=== PATIENT | male | born 1945 | race Caucasian/White ===

== ENCOUNTER 2018-03-15 18:11 | Emergency (ER) | payer OTHER, MEDICARE ==
--- NOTE | 2018-03-15 18:17 | ED SYNCOPE COMPLAINT ---
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 REPORED DIZZINESS WHILE STANDING, DRANK SOME WATER AND STATES HE FELT WORSE SO HE SAT DOWN. BLOOD SUGAR 111 FOR EMS. BP 90S SYSTOLIC. REPORTS HE BROKE LEFT SHOULDER A COUPLE DAYS AGO AND TOOK PRESCRIBED OXYCODONE THIS AM. Triage Nurses Notes Reviewed? yes Timing: single episode today Precipitating Factors: lightheadedness Loss of Consciousness: no loss of consciousness HPI: Patient is a 73-year-old male with a past medical history of hypertension and BPH and hyperlipidemia who states that last Thursday 3 days ago patient had a mechanical fall out of a truck where he had seemingly a left humeral fracture which she was seen at [facility] where he was prescribed Percocet and given a shoulder immobilizer patient states that today he was in his normal state of health however he did not eat or drink anything in which approximately at 5 PM while in a standing position at the bank he felt dizzy and lightheaded where he sat down. He states the symptoms began after drinking water. Patient took a Percocet at 5 AM. Patient states that his symptoms have completely resolved (Drew Ayala) Past History Medical History Any Pertinent Medical History? see below for history Cardiovascular: hypertension Tetanus Vaccine: 02/25/12 Surgical History Surgical History: non-contributory Psychosocial History What is your primary language [place] Family History Hx Contributory? No (Drew Ayala) Review of Systems Review of Systems Constitutional: Reports: no symptoms. EENTM: Reports: no symptoms. Respiratory: Reports: no symptoms. Cardiovascular: Reports: see HPI. Denies: chest pain, palpitations, peripheral edema, syncope. GI: Reports: no symptoms. Genitourinary: Reports: no symptoms. Musculoskeletal: Reports: see HPI. Skin: Reports: no symptoms. Neurological/Psychological: Reports: no symptoms. All Other Systems: Reviewed and Negative (Drew Ayala) Physical Exam Physical Exam General Appearance: no apparent distress, alert, comfortable Head: atraumatic Eyes: Bilateral: normal appearance, PERRL, EOMI. Ears, Nose, Throat: normal pharynx, normal ENT inspection, hearing grossly normal Neck: normal inspection Respiratory: normal breath sounds, chest non-tender, no respiratory distress Cardiovascular: regular rate/rhythm Gastrointestinal: normal bowel sounds, soft, non-tender Extremities: normal inspection, no edema Psychiatric: awake, alert, oriented x 3 Cranial Nerves: normal hearing, normal speech, PERRL Motor/Sensory: no motor/sensory deficits Skin: intact, normal color Core Measures ACS in differential dx? Yes CVA/TIA Diagnosis: No Sepsis Present: No Sepsis Focused Exam Completed? No (Drew Ayala) Progress Differential Diagnosis: AMI, aortic dissection, aortic valve, drug induced syncope, hyperventilation, orthostatic syncope, other valvular disease, pericardial tamponade, pulmonary embolus, seizure, sick sinus syndrome, subarachnoid hem., TIA/CVA, vasodepressor syncope, ventricular tach/fib Plan of Care: Orders Procedure Date/time Status Heart Healthy Diet 03/16 B Active TROPONIN LEVEL 03/15 2230 Complete EKG 03/15 2230 Active EKG 03/15 2030 Active MAGNESIUM 03/15 1817 Complete TROPONIN LEVEL 03/15 1816 Complete COMPREHENSIVE METABOLIC PANEL 03/15 1816 Complete CBC WITHOUT DIFFERENTIAL 03/15 1816 Complete EKG 03/15 1816 Active Laboratory Tests 03/15/18 2238: Troponin I < 0.01 03/15/182029: Troponin I Cancelled 03/15/18 182: Magnesium 1.8 03/15/18 1820: Anion Gap 10, Estimated GFR > 60, BUN/Creatinine Ratio 21.8, Glucose 113 H, Calcium 8.8, Total Bilirubin 0.9, AST 26, ALT 30, Alkaline Phosphatase 92, Troponin I < 0.01, Total Protein 6.2 L, Albumin 3.6, Globulin 2.6, Albumin/ Globulin Ratio 1.4, CBC w Diff NO MAN DIFF REQ, RBC 4.39 L, MCV 79.6 L, MCH 26.2 L, MCHC 32.9 L, RDW 17.2 H, MPV 8.3, Gran % 83.9 H, Lymphocytes % 8.3 L, Monocytes % 7.6, Eosinophils % 0.1, Basophils % 0.1, Absolute Granulocytes 13.2 H, Absolute Lymphocytes 1.3, Absolute Monocytes 1.2 H, Absolute Eosinophils 0, Absolute Basophils 0 H Cirilo initial presentation was resting comfortably bedside agent denies any symptoms and has significant improvement of his presentation of symptoms. Patient received initial blood work with unremarkable findings patient will receive second set troponin after 4 hours. Patient was given a meal 2210- patient still resting comfortable at bedside no apparent distress denies any symptoms Patient will see second troponin and EKG. Discussed HANDOFF with Dr. Orourke Initial ED EKG: normal intervals, normal p-waves, normal QRS complex, NSR 86 BPM Hand-Off Endorsed To: Martin Orourke MD Endorsed Time: 2258 Pending: EKG, labs (Drew Ayala) Departure Departure Disposition: HOME OR SELF CARE Condition: Stable Clinical Impression Primary Impression: Dizziness Referrals: Jerry OLIVEROS,Ed Merchant (PCP/Family) Additional Instructions: As discussed if symptoms worsen or if he develop a new symptom return to emergency room. Please begin eating a well healthy balanced diet and plenty water for hydration. Follow-up with YOUR doctor this week Departure Forms: Customer Survey General Discharge Information (Drew Ayala) PA/SETUP OPERATOR Co-Sign Statement Statement: ED Attending supervision documentation- [X] I saw and evaluated the patient. I have also reviewed all the pertinent lab results and diagnostic results. I agree with the findings and the plan of care as documented in the PA's/SETUP OPERATOR's documentation. [X] I have reviewed the ED Record and agree with the PA's/SETUP OPERATOR's documentation. [] Additions or exceptions (if any) to the PAs/SETUP OPERATOR's note and plan are summarized below: [] (Haven OLIVEROS,Martin Gongora)
[2018-03-15 18:32] LABS: ABSOLUTE BASOPHIL COUNT 0 /CUMM (0.0-0.2); ABSOLUTE EOSINOPHIL COUNT 0 /CUMM (0.0-0.7); ABSOLUTE LYMPH COUNT 1.3 /CUMM (1.2-3.4); ABSOLUTE MONOCYTE COUNT 1.2 /CUMM (0.10-0.60); MEAN CORPUSCULAR HGB 26.2 PG (27.0-31.0)
[2018-03-15 19:08] LABS: ABSOLUTE GRANULOCYTE CT 13.2 /CUMM (1.4-6.5); BASOPHIL % 0.1 % (0.0-2.0); EOSINOPHIL % 0.1 % (0-5); GRANULOCYTE % 83.9 % (42.2-75.2); MEAN CORPUSCULAR HGB CONC 32.9 G/DL (33.0-37.0); MEAN CORPUSCULAR VOLUME 79.6 FL (80.0-94.0); MEAN PLATELET VOLUME 8.3 FL (7.4-10.4); PLATELET COUNT 314 /CUMM (130-400); RBC DISTRIBUTION WIDTH 17.2 % (11.5-14.5); RED BLOOD CELL CT 4.39 /CUMM (4.70-6.10); WHITE BLOOD CELL COUNT 15.8 /CUMM (4.8-10.8)
[2018-03-15 22:38] VITALS: BP 136/64
== END 2018-03-15 23:34 ==
LOC: ERH 18:11
PROVIDERS: Physician Assistant
DX: R42 Dizziness and giddiness (principal)
CPT/HCPCS: 93005; 93010